=== PATIENT | female | born 1970 | race African-American/Black ===

== ENCOUNTER 2023-11-27 20:05 | Emergency (ER) | payer MEDICARE, SELFPAY ==
[2023-11-27] VITALS (10 sets, daily range): BP systolic 118–152; BP diastolic 62–73; PULSE 91–120; RESP 12–20; TEMP 37.3–38.3; O2SAT 98–100
--- NOTE | ~2023-11-27 | XR_ITS ---
EXAMINATION: XR chest 1V portable Exam Date/Time: 11/27/2023 20:45 CDT HISTORY: Fever Comparison: None. RESULT: Lines, tubes, and devices: None. Lungs and pleura: Clear. Cardiomediastinal silhouette: Unremarkable. Other: No acute osseous or upper abdominal finding. IMPRESSION: No acute cardiopulmonary process. Reviewed, dictated and finalized at location K.
--- NOTE | 2023-11-27 20:36 | ECG_ITS ---
SEE SCANNED COPY FOR CONFIRMED REPORT MTDD
--- NOTE | 2023-11-27 20:43 | ED.GENADULT ---
HPI - General Adult General Chief complaint: Fever Stated complaint: Fever Time Seen by Provider: 11/27/23 20:12 History of Present Illness HPI narrative: This is a 53-year-old female presenting for a possible infected lip ring. Patient says been swollen for the last 2-3 days. Patient is also complaining of fever and chills. She was seen at [facility] earlier today and was told there was nothing they could do about it. Patient denies chest pain difficulty breathing abdominal pain or urinary symptoms. Related Data Allergies Allergy/AdvReac Type Severity Reaction Status Date / Time Zldckog-VSW-DsM Reductase Allergy Unknown Verified 11/27/23 20:50 Inhibitor Exam Narrative: APPEARANCE: No apparent distress. Head: Patient has and lip ring in the lower left lip with surrounding swelling. The back of the earring is imbedded in her lip. No area of fluctuance EYES: EOMI, NOSE: Atraumatic NECK: Trachea midline RESPIRATORY: No increased rate of breathing , CTAB CARDIOVASCULAR: tachycardic, no peripheral edema ABDOMINAL: Non-distended, soft nontender no guarding rebound MUSCULOSKELETAl: No obvious deformities NEURO: Alert. Moving 4/4 extremities SKIN:: Warm, dry. Normal color PSYCHIATRIC: Normal affect Course Vital Signs Vital signs: Vital Signs Temperature 101 F H 11/27/23 20:03 Pulse Rate 120 H 11/27/23 20:03 Respiratory Rate 12 11/27/23 20:03 Blood Pressure 152/73 H 11/27/23 20:03 Pulse Oximetry 100 11/27/23 20:03 Oxygen Delivery Room Air 11/27/23 20:03 Temperature 98.3 F 11/28/23 00:47 Pulse Rate 90 11/28/23 00:15 Respiratory Rate 16 11/28/23 00:15 Blood Pressure 109/64 11/28/23 00:15 Pulse Oximetry 100 11/28/23 00:15 Oxygen Delivery Room Air 11/27/23 20:03 Fraction of Inspired Oxygen 99 11/27/23 20:47 Medical Decision Making [facility] Narrative Medical decision making narrative: -Course: 53-year-old female presenting for possibly infected. Patient is tachycardic and febrile. mild swelling of her lip around a imbedded lip piercing The lip piercing was removed by making a small incision on the inside of the lip to access the clasp. patient was given fluid resuscitation and NSAIDs with normalization of her vital signs. lab work significant for a BUN of 75 a creatinine of 2.2. Patient states she has chronic kidney disease but not does not know what her baseline is. Patient will be fluid resuscitated with repeat lactic and BMP and as long as they improve I expect discharge on a course of oral antibiotics. -DDX includes but is not limited to: infected lip ring, viral illness, pneumonia, UTI, -Co-morbidities complicating care: hypertension, diabetes, bipolar disorder -Social determinants of health: disabled due to psychiatric illness, collects government aid. denies Etoh/T/D -Independent interpretation of studies: CBC normal. Metabolic panel showed a BUN of 75 and a creatinine of 2.2. Patient is being fluid resuscitated. -Procedures: Foreign body removal from the lip using 3 cc of 0.25% bupivacaine and a small incision on the inner portion of the lip to remove the lip. -Interventions: 3 L normal saline -Shared decision making / Disposition: pending repeat labwork. SIGNOUT: Repeat lactic and metabolic panel improved with fluid rehydration. Vital signs stable. Patient discharged with oral antibiotics and return precautions. Vital Signs Vital Signs: Vital Signs Temperature 101 F H 11/27/23 20:03 Pulse Rate 120 H 11/27/23 20:03 Respiratory Rate 12 11/27/23 20:03 Blood Pressure 152/73 H 11/27/23 20:03 Pulse Oximetry 100 11/27/23 20:03 Oxygen Delivery Room Air 11/27/23 20:03 Temperature 98.3 F 11/28/23 00:47 Pulse Rate 90 11/28/23 00:15 Respiratory Rate 16 11/28/23 00:15 Blood Pressure 109/64 11/28/23 00:15 Pulse Oximetry 100 11/28/23 00:15 Oxygen Delivery Room Air 11/27/23 20:03 Fraction of Inspired Oxygen 99 0
[2023-11-27 20:56] LABS: Basophils Percent Auto 0.4 % (0.2-1.2); Eosinophils Percent Auto 0.6 % (0-4.4); Hematocrit 32.8 % (37.0-47.0); Hemoglobin 10.8 g/dL (12.0-15.0); Immature Granulocyte Absolute 0.01 K/mm3 (0.00-0.031); Immature Granulocyte Percent A 0.2 % (0-0.5); Lymphocytes Absolute Auto 0.62 K/mm3 (0.9-3.2); Lymphocytes Percent Auto 12.4 % (18.3-44.2); Mean Corpuscular HGB Conc 32.9 g/dl (32-36); Mean Corpuscular Hemoglobin 25.5 pg (26-34); Mean Corpuscular Volume 77.5 fl (80-100); Mean Platelet Volume 9.2 fl (7.4-10.4); Monocytes Absolute Auto 0.1 K/mm3 (0.1-0.6); Monocytes Percent Auto 1.6 % (2.6-8.5); Neutrophils Absolute Auto 4.3 K/mm3 (1.3-6.7); Neutrophils Percent Auto 84.8 % (45.5-73.1); Platelet Count Result 166 k/mm3 (150-375); Red Blood Count 4.23 M/mm3 (4.2-5.4); Red Cell Distribution Width 15.3 % (11.5-14.5)
[2023-11-27] MEDS: ACETAMINOPHEN 500 MG TABLET 1000 MG PO (21:00)
[2023-11-27] MEDS: SODIUM CHLORIDE 0.9% IV 1,000 ML 999 ML IV CONT (21:00)
[2023-11-27] MEDS: IBUPROFEN 400 MG TABLET 800 MG PO (21:00)
[2023-11-27 21:04] LABS: Lactic Acid Reflex 2.1 mmol/L (0.7-2.0)
[2023-11-27 21:05] LABS: Alanine Aminotransferase 17 U/L (6-35); Albumin Level 3.5 g/dL (3.5-5.1); Alkaline Phosphatase 145 U/L (38-126); Anion Gap 7 mmol/L (4-12); Aspartate Amino Transferase 18 U/L (14-36); Bilirubin,Total 0.3 mg/dL (0.2-1.3); Blood Urea Nitrogen 75 mg/dL (7-17); Calcium 7.8 mg/dL (8.4-10.2); Carbon Dioxide 25 mmol/L (22-30); Chloride 106 mmol/L (98-107); Estimated CRCL calculation 29 ml/min; Estimated Glomerular Filt Rate 24; Glucose 333 mg/dL (65-110); Potassium 4.4 mmol/L (3.4-5.0); Sodium 138 mmol/L (137-145)
[2023-11-27 21:34] LABS: Influenza A QL RT-PCR Negative (Negative); Influenza B QL RT-PCR Negative (Negative); RSV RNA, RT-PCR Negative (Negative); SARS-CoV-2 RNA PCR Negative (Negative)
[2023-11-27] MEDS: SODIUM CHLORIDE 0.9% IV 2,000 ML 999 ML IV CONT (22:12)
[2023-11-27] MEDS: AMOXICILLIN/CLAVULANATE K 875-125 MG TAB 1 TABLET PO (23:21)
--- NOTE | 2023-11-27 23:24 | PC.NURSE ---
Assumed care of pt. Bedside report from [facility].
[2023-11-27 23:28] LABS: Amphetamine Screen Urine Negative (Negative); Barbiturate Screen Urine Negative (Negative); Benzodiazepines Screen Urine Negative (Negative); Cannabinoid Screen Urine Negative (Negative); Cocaine Screen Urine Negative (Negative); Methadone Screen Urine Negative (Negative); Opiate Screen Urine Negative (Negative); Phencyclidine Screen Urine Negative (Negative)
[2023-11-27 23:53] LABS: Reflex Lactic Acid Yes or No Add Lactic
[2023-11-28 00:04] LABS: Appearance Urine Clear (Clear); Bacteria Urine Rare /hpf; Bilirubin Urine Negative (Negative); Blood Urine Trace (Negative); Color Urine Yellow (Yellow); Glucose Urine UA 1+ mg/dL (Negative); Ketones Urine Negative (Negative); Leukocyte Esterase Ur Negative LEU/UL (Negative); Nitrate Urine Negative (Negative); Protein Urine 2+ mg/dL (Negative); RBC Urine 0-2 /hpf (0-2); Specific Grav Ur 1.013 (1.001-1.035); Squamous Epithelial Cell Urine None Seen /hpf (Few); Urobilinogen Urine 0.2 mg/dL (<2.0); WBC Urine 0-5 /hpf (0-3)
[2023-11-28 00:15] VITALS: BP 109/64; PULSE 90; RESP 16; O2SAT 100
[2023-11-28 00:27] LABS: Add Urine Microscopic? YES
[2023-11-28 00:47] VITALS: TEMP 36.8
[2023-11-28 00:59] LABS: Lactic Acid Reflex 0.8 mmol/L (0.7-2.0)
[2023-11-28 01:05] LABS: Anion Gap 4 mmol/L (4-12); Blood Urea Nitrogen 64 mg/dL (7-17); Calcium 6.5 mg/dL (8.4-10.2); Carbon Dioxide 21 mmol/L (22-30); Chloride 112 mmol/L (98-107); Estimated CRCL calculation 36 ml/min; Estimated Glomerular Filt Rate 36; Glucose 272 mg/dL (65-110); Sodium 137 mmol/L (137-145)
== END 2023-11-28 01:31 | disposition home or self-care (01) ==
PROVIDERS: Emergency Medicine; Emergency Provider Emergency Medicine
DX: L08.9 Local infection of the skin and subcutaneous tissue, unspecified (principal); M79.5 Residual foreign body in soft tissue; Z20.822 Contact with and (suspected) exposure to COVID-19
CPT/HCPCS: 10120; 36415; 71045; 80048; 80053; 80307; 81001; 83605; 85025; 87637; 93005; 96360; 96361; 99283; A9270; J7030